=== PATIENT | female | born 1960 | race Caucasian/White ===

== ENCOUNTER 2017-12-19 01:12 | Emergency (ER) | payer MEDICAID ==
[~2017-12-19] VITALS: Ht 167.6 cm; Wt 96.1 kg
[~2017-12-19 01:12] MED LIST: HYDR-3965 PO; HYDR1TAB PO
[2017-12-19] MEDS ORDERED: ketorolac trometh. 30mg/ml inj. IV ONE (01:55)
[2017-12-19 02:17] LABS: BASOPHILS # (AUTO) 0.1 X10'3 (0-0.2); BASOPHILS % (AUTO) 0.7 % (0-1); EOSINOPHILS # (AUTO) 0.2 X10'3 (0-0.9); EOSINOPHILS % (AUTO) 2.6 % (0-6); HEMATOCRIT 38.3 % (35.0-45.0); HEMOGLOBIN 13.3 g/dl (12.0-16.0); LYMPHOCYTES # (AUTO) 3.5 X10'3 (1.1-4.8); LYMPHOCYTES % (AUTO) 42.7 % (21-51); MEAN CORPUSCULAR HEMOGLOBIN 31.9 PG (27.0-31.0); MEAN CORPUSCULAR HGB CONC 34.7 % (33.0-36.5); MEAN CORPUSCULAR VOLUME 91.7 FL (78-98); MEAN PLATELET VOLUME 8.6 FL (7.4-10.4); MONOCYTES # (AUTO) 0.6 X10'3 (0-0.9); MONOCYTES % (AUTO) 7.7 % (2-12); NEUTROPHILS # (AUTO) 3.8 X10'3 (1.8-7.7); NEUTROPHILS % (AUTO) 46.3 % (42-75); PLATELET COUNT 200 X10'3 (140-440); RED BLOOD COUNT 4.18 X10'6 (4.20-5.60); RED CELL DISTRIBUTION WIDTH 13.4 % (11.5-14.5); WHITE BLOOD COUNT 8.2 X10'3 (4.5-11.0)
[2017-12-19 02:33] LABS: ALANINE AMINOTRANSFERASE 44 U/L (12-78); ALBUMIN/GLOBULIN RATIO 1.3 (1.1-1.5); ALKALINE PHOSPHATASE 73 IU/L (46-116); ANION GAP 7 (8-16); ASPARTATE AMINO TRANSFERASE 33 U/L (10-37); BILIRUBIN,TOTAL 0.5 MG/DL (0.1-1.0); BLOOD UREA NITROGEN 15 MG/DL (7-18); CALCIUM 8.8 MG/DL (8.5-10.1); CHLORIDE 107 MMOL/L (99-107); GLUCOSE 94 MG/DL (70-104); POTASSIUM 3.4 MMOL/L (3.5-5.1); SODIUM 143 MMOL/L (135-145); TOTAL CARBON DIOXIDE 29.1 MMOL/L (24-32); TOTAL PROTEIN 7.2 G/DL (6.4-8.2); eGFR 58 ML/MIN
[2017-12-19 02:50] LABS: CLARITY,URINE SLIGHTLY CLOUDY (Clear); COLOR,URINE YELLOW (Yellow); GLUCOSE, URINE NEGATIVE (Neg); KETONES,URINE NEGATIVE (Neg); LEUKOCYTE ESTERASE ,URINE NEGATIVE (Neg); NITRITES, URINE NEGATIVE (Neg); OCCULT BLOOD,URINE NEGATIVE (Neg); PH,URINE 5.5 (4.8-8.0); PROTEIN,URINE NEGATIVE (Neg); UROBILINOGEN,URINE 0.2 E.U/dL (0.2-1.0)
[2017-12-19 03:06] LABS: UA COLLECTION TYPE CLN CATCH MIDSTREAM
[2017-12-19] MEDS ORDERED: TRAM50TA2 PO (03:20)
[2017-12-19 03:33] VITALS: BP 121/88
[2017-12-19 03:53] LABS: RBC,URINE NONE SEEN /HPF (0-2); WBC,URINE 0-4 /HPF (0-4)
[2017-12-19 03:54] LABS: AMORPHOUS URATES 3+; BACTERIA,URINE NONE SEEN /HPF (Neg); CAL OXALATE CRYSTALS 1+ /HPF (NEGATIVE); MUCUS STRANDS FEW /LPF (Neg); SQUAMOUS EPITHELIAL CELL,UR FEW /LPF (FEW)
== END 2017-12-19 03:36 | disposition home or self-care (01) ==
LOC: ER 01:12
DX: R10.31 Right lower quadrant pain (principal); G89.29 Other chronic pain; F17.200 Nicotine dependence, unspecified, uncomplicated; Z88.2 Allergy status to sulfonamides; Z88.5 Allergy status to narcotic agent; Z98.890 Other specified postprocedural states
CPT/HCPCS: 36415; 76856; 80053; 81001; 85025; 96374; 99285; J1885

== ENCOUNTER 2018-03-16 01:29 | Emergency (ER) | payer MEDICAID ==
[~2018-03-16] VITALS: Ht 167.6 cm; Wt 90.9 kg
[~2018-03-16 01:29] MED LIST changes: +AZI25OT PO; +ROBDML PO
[2018-03-16 04:57] VITALS: BP 123/60
[2018-03-16] MEDS ORDERED: MECL12.584 PO (05:00)
== END 2018-03-16 05:01 | disposition home or self-care (01) ==
LOC: ER 01:30
DX: F07.81 Postconcussional syndrome (principal); G89.29 Other chronic pain; Z98.890 Other specified postprocedural states; Z88.2 Allergy status to sulfonamides; Z88.5 Allergy status to narcotic agent; Z88.8 Allergy status to other drugs, medicaments and biological substances
CPT/HCPCS: 70450; 99284

== ENCOUNTER 2018-03-22 00:54 | Emergency (ER) | payer MEDICAID ==
[~2018-03-22] VITALS: Ht 167.6 cm; Wt 90.9 kg
[~2018-03-22 00:54] MED LIST changes: +MECL12.584 PO
[2018-03-22 04:43] VITALS: BP 143/88
== END 2018-03-22 04:44 | disposition home or self-care (01) ==
LOC: EEVIPCON 00:54 → ER 00:54
DX: R10.2 Pelvic and perineal pain (principal); R50.9 Fever, unspecified; L29.2 Pruritus vulvae; G89.29 Other chronic pain; F15.10 Other stimulant abuse, uncomplicated; F11.10 Opioid abuse, uncomplicated; Z98.890 Other specified postprocedural states; Z88.5 Allergy status to narcotic agent; Z88.2 Allergy status to sulfonamides; Z88.1 Allergy status to other antibiotic agents
CPT/HCPCS: 36415; 87210; 87491; 99284

== ENCOUNTER 2018-04-11 20:37 | Emergency (ER) | payer MEDICAID ==
[~2018-04-11] VITALS: Ht 165.1 cm; Wt 90.0 kg
[~2018-04-11 20:37] MED LIST changes: -AZI25OT PO
[2018-04-11 23:22] VITALS: BP 129/77
== END 2018-04-11 23:32 | disposition home or self-care (01) ==
LOC: ER 20:38
DX: M79.671 Pain in right foot (principal); F15.10 Other stimulant abuse, uncomplicated; Z88.6 Allergy status to analgesic agent; Z88.2 Allergy status to sulfonamides; Z88.8 Allergy status to other drugs, medicaments and biological substances
CPT/HCPCS: 29515; 73610; 99284

== ENCOUNTER 2018-06-28 16:27 | Emergency (ER) | payer MEDICAID ==
[~2018-06-28] VITALS: Ht 165.1 cm; Wt 90.9 kg
[~2018-06-28 16:27] MED LIST changes: +APIX5TAB3 PO; -HYDR-3965 PO; -HYDR1TAB PO; -MECL12.584 PO; -ROBDML PO
[2018-06-28 16:31] VITALS: BP 176/86
== END 2018-06-28 16:52 | disposition left against medical advice (07) ==
LOC: ER 16:28
DX: M79.604 Pain in right leg (principal); Z53.21 Procedure and treatment not carried out due to patient leaving prior to being seen by health care provider
CPT/HCPCS: 80053; 93005; 99281

== ENCOUNTER 2018-06-29 00:52 | Emergency (ER) | payer MEDICAID | END 2018-06-29 01:53 | disposition left against medical advice (07) | LOC: ER 00:53 | DX: R60.0 Localized edema (principal); Z53.21 Procedure and treatment not carried out due to patient leaving prior to being seen by health care provider ==

== ENCOUNTER 2018-07-09 23:23 | Emergency (ER) | payer MEDICAID ==
[~2018-07-09] VITALS: Ht 152.4 cm; Wt 90.9 kg
[2018-07-10] MEDS ORDERED: ACET325T55 PO (02:57)
[2018-07-10 03:21] VITALS: BP 127/78
== END 2018-07-10 03:23 | disposition home or self-care (01) ==
LOC: ER 23:24
DX: S09.8XXA Other specified injuries of head, initial encounter (principal); Z88.6 Allergy status to analgesic agent; Z88.2 Allergy status to sulfonamides; Z88.1 Allergy status to other antibiotic agents; Z88.5 Allergy status to narcotic agent; T74.21XA Adult sexual abuse, confirmed, initial encounter; Y93.89 Activity, other specified; Y99.8 Other external cause status; Y92.830 Public park as the place of occurrence of the external cause
CPT/HCPCS: 70486; 73610; 73620; 99284

== ENCOUNTER 2020-01-28 08:21 | Emergency (ER) | payer MEDICAID ==
[~2020-01-28] VITALS: Ht 165.1 cm; Wt 90.9 kg
[~2020-01-28 08:21] MED LIST changes: +ACET325T55 PO; +ONDA8TAB9 PO
[2020-01-28 08:35] VITALS: BP 153/88
[2020-01-28] MEDS ORDERED: ketorolac trometh. 30mg/ml inj. IM ONE (09:00)
[2020-01-28] MEDS ORDERED: PRED20TA PO (09:06)
[2020-01-28] MEDS ORDERED: CYCL-1 PO (09:06)
== END 2020-01-28 09:23 | disposition home or self-care (01) ==
LOC: ER 08:21
DX: M54.12 Radiculopathy, cervical region (principal); M25.512 Pain in left shoulder; G89.29 Other chronic pain; F41.9 Anxiety disorder, unspecified; F15.90 Other stimulant use, unspecified, uncomplicated; F11.90 Opioid use, unspecified, uncomplicated; Z98.890 Other specified postprocedural states; Z72.89 Other problems related to lifestyle; Z88.2 Allergy status to sulfonamides; Z88.5 Allergy status to narcotic agent; Z88.8 Allergy status to other drugs, medicaments and biological substances; Z79.899 Other long term (current) drug therapy; Z79.01 Long term (current) use of anticoagulants
CPT/HCPCS: 96372; 99283; J1885

== ENCOUNTER 2020-02-11 22:07 | Emergency (ER) | payer MEDICAID ==
[~2020-02-11] VITALS: Ht 165.1 cm; Wt 94.0 kg
[~2020-02-11 22:07] MED LIST changes: +CYCL-1 PO
[2020-02-11] MEDS ORDERED: PRED20TA PO (23:08)
[2020-02-11] MEDS ORDERED: ALBU6.7H9 INH (23:08)
[2020-02-11] MEDS ORDERED: AMOX-422 PO (23:08)
[2020-02-11 23:18] VITALS: BP 128/77
== END 2020-02-11 23:22 | disposition home or self-care (01) ==
LOC: ER 22:07
DX: J40 Bronchitis, not specified as acute or chronic (principal); G89.29 Other chronic pain; F41.9 Anxiety disorder, unspecified; F17.200 Nicotine dependence, unspecified, uncomplicated; F15.90 Other stimulant use, unspecified, uncomplicated; F14.90 Cocaine use, unspecified, uncomplicated; Z98.890 Other specified postprocedural states; Z59.0 Homelessness; Z88.2 Allergy status to sulfonamides; Z88.5 Allergy status to narcotic agent; Z88.8 Allergy status to other drugs, medicaments and biological substances; Z79.2 Long term (current) use of antibiotics; Z79.01 Long term (current) use of anticoagulants; Z79.899 Other long term (current) drug therapy
CPT/HCPCS: 71046; 99283

== ENCOUNTER 2020-03-13 11:46 | Emergency (ER) | payer MEDICAID ==
[~2020-03-13] VITALS: Ht 165.1 cm; Wt 93.2 kg
[~2020-03-13 11:46] MED LIST changes: +ALBU6.7H9 INH
[2020-03-13 13:46] LABS: BASOPHILS % (AUTO) 0.5 % (0-1); EOSINOPHILS # (AUTO) 0.2 X10'3 (0-0.9); EOSINOPHILS % (AUTO) 1.9 % (0-6); HEMATOCRIT 39.9 % (35.0-45.0); HEMOGLOBIN 13.3 g/dl (12.0-16.0); LYMPHOCYTES # (AUTO) 2.3 X10'3 (1.1-4.8); LYMPHOCYTES % (AUTO) 28.1 % (21-51); MEAN CORPUSCULAR HEMOGLOBIN 31.5 PG (27.0-31.0); MEAN CORPUSCULAR HGB CONC 33.4 g/dL (33.0-36.5); MEAN CORPUSCULAR VOLUME 94.1 FL (78-98); MEAN PLATELET VOLUME 8.7 FL (7.4-10.4); MONOCYTES # (AUTO) 0.8 X10'3 (0-0.9); MONOCYTES % (AUTO) 9.4 % (2-12); NEUTROPHILS # (AUTO) 4.9 X10'3 (1.8-7.7); NEUTROPHILS % (AUTO) 60.1 % (42-75); PLATELET COUNT 242 X10'3 (140-440); RED BLOOD COUNT 4.24 X10'6 (4.20-5.60); RED CELL DISTRIBUTION WIDTH 13.4 % (11.5-14.5); WHITE BLOOD COUNT 8.1 X10'3 (4.5-11.0)
[2020-03-13] MEDS ORDERED: normal saline 1000ML IV soln IVB ONE (13:55)
[2020-03-13 13:58] LABS: ALANINE AMINOTRANSFERASE 20 U/L (12-78); ALBUMIN 3.7 G/DL (3.4-5.0); ALBUMIN/GLOBULIN RATIO 1.2 (1.1-1.5); ALKALINE PHOSPHATASE 71 IU/L (46-116); ANION GAP 12 (8-16); ASPARTATE AMINO TRANSFERASE 14 U/L (10-37); BILIRUBIN,TOTAL 0.3 MG/DL (0.1-1.0); BLOOD UREA NITROGEN 19 MG/DL (7-18); BUN/CREATININE RATIO 18.6 (6.6-38.0); CALCIUM 8.9 MG/DL (8.5-10.1); CHLORIDE 106 MMOL/L (99-107); CREATININE 1.02 MG/DL (0.40-0.90); GLUCOSE 108 MG/DL (70-104); LIPASE 81 U/L (73-393); SODIUM 143 MMOL/L (135-145); TOTAL CARBON DIOXIDE 25.4 MMOL/L (24-32); TOTAL PROTEIN 6.8 G/DL (6.4-8.2); eGFR 56 ML/MIN
[2020-03-13 14:09] LABS: CLARITY,URINE SLIGHTLY CLOUDY (Clear); COLOR,URINE YELLOW (Yellow); GLUCOSE, URINE NEGATIVE (Neg); KETONES,URINE NEGATIVE (Neg); LEUKOCYTE ESTERASE ,URINE NEGATIVE (Neg); NITRITES, URINE NEGATIVE (Neg); OCCULT BLOOD,URINE NEGATIVE (Neg); PROTEIN,URINE 30 mg/dl (Neg); UROBILINOGEN,URINE 0.2 E.U/dL (0.2-1.0)
[2020-03-13 14:12] LABS: UA COLLECTION TYPE CLN CATCH MIDSTREAM
[2020-03-13 14:13] LABS: ETHANOL < 0.010 GM/DL (0.0-0.010)
[2020-03-13 14:14] LABS: BACTERIA,URINE NONE SEEN /HPF (Neg); MUCUS STRANDS MODERATE /LPF (Neg); RBC,URINE NONE SEEN /HPF (0-2); SQUAMOUS EPITHELIAL CELL,UR FEW /LPF (FEW); URIC ACID CRYSTALS 2+ /HPF (NEGATIVE); WBC,URINE 0-4 /HPF (0-4)
[2020-03-13 14:22] LABS: URINE AMPHETAMINE SCREEN POSITIVE (Neg); URINE BARBITUATE SCREEN NEGATIVE (Neg); URINE BENZODIAZEPINES SCREEN NEGATIVE (Neg); URINE CANNABINOID SCREEN POSITIVE (Neg); URINE COCAINE SCREEN NEGATIVE (Neg); URINE METHADONE SCREEN NEGATIVE (Neg); URINE OPIATE SCREEN NEGATIVE (Neg); URINE PHENCYCLIDINE SCREEN NEGATIVE (Neg)
[2020-03-13] MEDS ORDERED: POTA20TA19 PO (14:39)
[2020-03-13] MEDS ORDERED: ONDA4TAB12 PO (14:39)
[2020-03-13 15:08] VITALS: BP 123/64
== END 2020-03-13 15:07 | disposition home or self-care (01) ==
LOC: ER 11:46
DX: E87.6 Hypokalemia (principal); R11.2 Nausea with vomiting, unspecified; G89.29 Other chronic pain; F41.9 Anxiety disorder, unspecified; F17.210 Nicotine dependence, cigarettes, uncomplicated; F12.90 Cannabis use, unspecified, uncomplicated; F15.90 Other stimulant use, unspecified, uncomplicated; F11.90 Opioid use, unspecified, uncomplicated; Z59.0 Homelessness; Z72.89 Other problems related to lifestyle; Z98.890 Other specified postprocedural states; Z88.2 Allergy status to sulfonamides; Z88.5 Allergy status to narcotic agent; Z88.8 Allergy status to other drugs, medicaments and biological substances; Z79.01 Long term (current) use of anticoagulants; Z79.899 Other long term (current) drug therapy
CPT/HCPCS: 36415; 80053; 80305; 80320; 81001; 83690; 85025; 96360; 99283; J7030

== ENCOUNTER 2020-05-09 21:10 | Emergency (ER) | payer MEDICAID ==
[~2020-05-09] VITALS: Ht 165.1 cm; Wt 94.1 kg
[~2020-05-09 21:10] MED LIST changes: +ONDA4TAB12 PO
[2020-05-09 21:37] LABS: BASOPHILS % (AUTO) 0.6 % (0-1); EOSINOPHILS # (AUTO) 0.1 X10'3 (0-0.9); HEMATOCRIT 39.1 % (35.0-45.0); LYMPHOCYTES # (AUTO) 2.5 X10'3 (1.1-4.8); LYMPHOCYTES % (AUTO) 33.6 % (21-51); MEAN CORPUSCULAR HEMOGLOBIN 31.5 PG (27.0-31.0); MEAN CORPUSCULAR HGB CONC 33.2 g/dL (33.0-36.5); MEAN PLATELET VOLUME 8.3 FL (7.4-10.4); MONOCYTES # (AUTO) 0.6 X10'3 (0-0.9); MONOCYTES % (AUTO) 7.5 % (2-12); NEUTROPHILS # (AUTO) 4.3 X10'3 (1.8-7.7); NEUTROPHILS % (AUTO) 57.3 % (42-75); PLATELET COUNT 236 X10'3 (140-440); RED BLOOD COUNT 4.12 X10'6 (4.20-5.60); RED CELL DISTRIBUTION WIDTH 13.3 % (11.5-14.5); WHITE BLOOD COUNT 7.5 X10'3 (4.5-11.0)
[2020-05-09 21:54] LABS: ALANINE AMINOTRANSFERASE 21 U/L (12-78); ALBUMIN 3.8 G/DL (3.4-5.0); ALBUMIN/GLOBULIN RATIO 1.3 (1.1-1.5); ALKALINE PHOSPHATASE 72 IU/L (46-116); ANION GAP 11 (8-16); ASPARTATE AMINO TRANSFERASE 17 U/L (10-37); BILIRUBIN,TOTAL 0.3 MG/DL (0.1-1.0); BLOOD UREA NITROGEN 16 MG/DL (7-18); BUN/CREATININE RATIO 13.3 (6.6-38.0); CALCIUM 8.9 MG/DL (8.5-10.1); CHLORIDE 108 MMOL/L (99-107); GLUCOSE 95 MG/DL (70-104); SODIUM 144 MMOL/L (135-145); TOTAL CARBON DIOXIDE 25.4 MMOL/L (24-32); TOTAL PROTEIN 6.8 G/DL (6.4-8.2); eGFR 46 ML/MIN
[2020-05-09 22:22] VITALS: BP 116/63
== END 2020-05-09 22:23 | disposition home or self-care (01) ==
LOC: ER 21:11
DX: R07.89 Other chest pain (principal); R10.33 Periumbilical pain; G89.29 Other chronic pain; F41.9 Anxiety disorder, unspecified; F12.90 Cannabis use, unspecified, uncomplicated; F15.90 Other stimulant use, unspecified, uncomplicated; F11.90 Opioid use, unspecified, uncomplicated; Z98.890 Other specified postprocedural states; Z59.0 Homelessness; Z88.2 Allergy status to sulfonamides; Z88.5 Allergy status to narcotic agent; Z88.8 Allergy status to other drugs, medicaments and biological substances; Z79.01 Long term (current) use of anticoagulants; Z79.899 Other long term (current) drug therapy
CPT/HCPCS: 36415; 71045; 80053; 84484; 85025; 93005; 99285

== ENCOUNTER 2023-01-04 02:04 | Emergency (ER) | payer MEDICAID ==
[~2023-01-04] VITALS: Ht 165.1 cm; Wt 100.0 kg
[~2023-01-04 02:04] MED LIST changes: +ALBU6.7H14 INH; -ALBU6.7H9 INH; +IBUP-1984 PO
[2023-01-04 02:08] VITALS: BP 134/65
[2023-01-04] MEDS ORDERED: ALBU18HF2 INH (03:23)
[2023-01-04] MEDS ORDERED: PRED20TA PO (03:23)
== END 2023-01-04 03:39 | disposition home or self-care (01) ==
LOC: ER 02:06
DX: J20.9 Acute bronchitis, unspecified (principal); Z20.822 Contact with and (suspected) exposure to COVID-19; R07.89 Other chest pain; E86.0 Dehydration; G89.29 Other chronic pain; F41.9 Anxiety disorder, unspecified; F12.90 Cannabis use, unspecified, uncomplicated; F17.210 Nicotine dependence, cigarettes, uncomplicated; F15.90 Other stimulant use, unspecified, uncomplicated; F11.90 Opioid use, unspecified, uncomplicated; Z59.00 Homelessness unspecified; Z88.2 Allergy status to sulfonamides; Z88.8 Allergy status to other drugs, medicaments and biological substances; Z88.1 Allergy status to other antibiotic agents; Z79.899 Other long term (current) drug therapy
CPT/HCPCS: 71045; 87811; 93005; 99285

== ENCOUNTER 2023-04-02 19:09 | Emergency (ER) | payer MEDICAID ==
[~2023-04-02] VITALS: Ht 165.1 cm; Wt 103.2 kg
[~2023-04-02 19:09] MED LIST changes: +ALBU18HF2 INH
[2023-04-02 19:18] VITALS: BP 144/88
[2023-04-02 19:43] LABS: CLARITY,URINE SLIGHTLY CLOUDY (Clear); COLOR,URINE YELLOW (Yellow); GLUCOSE, URINE NEGATIVE (Neg); KETONES,URINE NEGATIVE (Neg); LEUKOCYTE ESTERASE ,URINE NEGATIVE (Neg); NITRITES, URINE NEGATIVE (Neg); OCCULT BLOOD,URINE NEGATIVE (Neg); PROTEIN,URINE NEGATIVE (Neg); UROBILINOGEN,URINE 0.2 E.U/dL (0.2-1.0)
[2023-04-02 19:48] LABS: UA COLLECTION TYPE CLN CATCH MIDSTREAM
[2023-04-02 19:53] LABS: SQUAMOUS EPITHELIAL CELL,UR FEW /LPF (FEW)
[2023-04-02 19:55] LABS: FINE GRANULAR CAST 0-3 /LPF (NEGATIVE)
[2023-04-02 19:56] LABS: RBC,URINE 0-2 /HPF (0-2); WBC,URINE 0-4 /HPF (0-4)
[2023-04-02 19:57] LABS: BACTERIA,URINE FEW /HPF (Neg)
[2023-04-02] MEDS ORDERED: DIF150T PO (20:20)
[2023-04-02] MEDS ORDERED: fluconazole 150mg tablet PO ONE (20:25)
== END 2023-04-02 20:34 | disposition home or self-care (01) ==
LOC: ER 19:10
DX: B37.2 Candidiasis of skin and nail (principal); H92.02 Otalgia, left ear; F12.10 Cannabis abuse, uncomplicated; F15.10 Other stimulant abuse, uncomplicated; G89.29 Other chronic pain; M54.9 Dorsalgia, unspecified; F41.9 Anxiety disorder, unspecified; Z87.81 Personal history of (healed) traumatic fracture; Z59.00 Homelessness unspecified; Z88.2 Allergy status to sulfonamides; Z88.5 Allergy status to narcotic agent; Z79.899 Other long term (current) drug therapy; Z88.8 Allergy status to other drugs, medicaments and biological substances
CPT/HCPCS: 81001; 99283

== ENCOUNTER 2023-04-03 00:36 | Emergency (ER) | payer MEDICAID ==
[~2023-04-03] VITALS: Ht 165.1 cm; Wt 100.0 kg
[~2023-04-03 00:36] MED LIST changes: +DIF150T PO
[2023-04-03 00:55] VITALS: BP 137/71
== END 2023-04-03 01:11 | disposition left against medical advice (07) ==
LOC: ER 00:37
DX: R23.8 Other skin changes (principal); Z53.21 Procedure and treatment not carried out due to patient leaving prior to being seen by health care provider
CPT/HCPCS: 99281

== ENCOUNTER 2023-05-25 10:27 | Emergency (ER) | payer MEDICAID ==
[~2023-05-25] VITALS: Ht 165.1 cm; Wt 104.5 kg
[~2023-05-25 10:27] MED LIST changes: -DIF150T PO
[2023-05-25 10:38] VITALS: BP 145/89
[2023-05-25] MEDS ORDERED: acetaminophen 325mg tablet PO ONE (11:15)
[2023-05-25] MEDS ORDERED: metoclopramide 10mg tablet PO ONE (11:15)
[2023-05-25] MEDS ORDERED: orphenadrine citrate 60mg/2ml inj. IM ONE (11:15)
[2023-05-25] MEDS ORDERED: ketorolac trometh inj. 60 MG/2 ML VIAL IM ONE (11:15)
[2023-05-25] MEDS ORDERED: HYDROcodone/acetaminophen 10/325mg tab PO ONE (11:15)
[2023-05-25] MEDS ORDERED: cyclobenzaprine 10mg tablet PO ONE (11:35)
[2023-05-25 11:59] LABS: CLARITY,URINE CLEAR (Clear); COLOR,URINE YELLOW (Yellow); GLUCOSE, URINE NEGATIVE (Neg); KETONES,URINE NEGATIVE (Neg); LEUKOCYTE ESTERASE ,URINE NEGATIVE (Neg); NITRITES, URINE NEGATIVE (Neg); OCCULT BLOOD,URINE NEGATIVE (Neg); PH,URINE 5.5 (4.8-8.0); PROTEIN,URINE NEGATIVE (Neg); UROBILINOGEN,URINE 0.2 E.U/dL (0.2-1.0)
[2023-05-25 12:01] LABS: UA COLLECTION TYPE CLN CATCH MIDSTREAM
[2023-05-25] MEDS ORDERED: HYDR-3973 PO (12:29)
[2023-05-25] MEDS ORDERED: LIDO700A32 TOP (12:29)
[2023-05-25] MEDS ORDERED: CYCL-1 PO (12:29)
[2023-05-25 12:39] LABS: URINE AMPHETAMINE SCREEN NEGATIVE (Neg); URINE BARBITUATE SCREEN NEGATIVE (Neg); URINE BENZODIAZEPINES SCREEN NEGATIVE (Neg); URINE CANNABINOID SCREEN POSITIVE (Neg); URINE COCAINE SCREEN NEGATIVE (Neg); URINE METHADONE SCREEN NEGATIVE (Neg); URINE OPIATE SCREEN NEGATIVE (Neg); URINE PHENCYCLIDINE SCREEN NEGATIVE (Neg)
== END 2023-05-25 13:12 | disposition home or self-care (01) ==
LOC: ER 10:28
DX: M54.50 Low back pain, unspecified (principal); G89.29 Other chronic pain; F41.9 Anxiety disorder, unspecified; F12.90 Cannabis use, unspecified, uncomplicated; F15.90 Other stimulant use, unspecified, uncomplicated; F11.90 Opioid use, unspecified, uncomplicated; Z98.890 Other specified postprocedural states; Z59.00 Homelessness unspecified; Z72.89 Other problems related to lifestyle; Z88.2 Allergy status to sulfonamides; Z88.5 Allergy status to narcotic agent; Z88.8 Allergy status to other drugs, medicaments and biological substances; Z79.899 Other long term (current) drug therapy
CPT/HCPCS: 74176; 80305; 81003; 96372; 99285; J1885

== ENCOUNTER 2023-06-14 14:33 | Outpatient (CLI) | payer MEDICAID ==
[~2023-06-14 14:33] MED LIST changes: +HYDR-3973 PO; +LIDO700A32 TOP
== END 2023-06-14 23:59 | disposition home or self-care (01) ==
LOC: RAD 14:33
PROVIDERS: ATTEND Nurse Practitioner Family
DX: M47.817 Spondylosis without myelopathy or radiculopathy, lumbosacral region (principal); M47.815 Spondylosis without myelopathy or radiculopathy, thoracolumbar region; M48.07 Spinal stenosis, lumbosacral region; M25.78 Osteophyte, vertebrae; M54.50 Low back pain, unspecified
CPT/HCPCS: 72110

== ENCOUNTER 2023-06-21 14:23 | Emergency (ER) | payer MEDICAID ==
[~2023-06-21] VITALS: Ht 165.1 cm; Wt 100.4 kg
[2023-06-21 14:41] VITALS: BP 146/75; PULSE 80; RESP 18; TEMP 99.2; O2SAT 98
--- NOTE | 2023-06-21 15:24 | NUR ---
AT BEDSIDE WITH YAKELIN FOR PELVIC EXAM.
[2023-06-21] MEDS ORDERED: MICO45CR46 VG (15:30)
[2023-06-21] MEDS ORDERED: ONDA4TAB12 PO (15:30)
[2023-06-21] MEDS ORDERED: ondansetron 4mg rapidly disintigrating tab PO ONE (15:30)
--- NOTE | 2023-06-21 16:14 | NUR ---
PO CHALLENGE TOLERATED.
== END 2023-06-21 16:15 | disposition home or self-care (01) ==
LOC: ER 14:24
DX: A08.4 Viral intestinal infection, unspecified (principal); L29.2 Pruritus vulvae; F41.9 Anxiety disorder, unspecified; F12.10 Cannabis abuse, uncomplicated; F15.10 Other stimulant abuse, uncomplicated; G89.29 Other chronic pain; M54.9 Dorsalgia, unspecified; Z87.81 Personal history of (healed) traumatic fracture; Z59.00 Homelessness unspecified; Z56.0 Unemployment, unspecified; Z88.2 Allergy status to sulfonamides; Z79.899 Other long term (current) drug therapy; Z88.5 Allergy status to narcotic agent; Z88.8 Allergy status to other drugs, medicaments and biological substances; Z79.1 Long term (current) use of non-steroidal anti-inflammatories (NSAID)
CPT/HCPCS: 99283; 99284

== ENCOUNTER 2023-06-25 00:12 | Emergency (ER) | payer MEDICAID ==
[~2023-06-25] VITALS: Ht 165.1 cm; Wt 99.1 kg
[~2023-06-25 00:12] MED LIST changes: +MICO45CR46 VG
[2023-06-25 00:36] VITALS: BP 112/66; PULSE 63; RESP 20; TEMP 98.7; O2SAT 97
== END 2023-06-25 05:17 | disposition left against medical advice (07) ==
LOC: ER 00:13
DX: R06.02 Shortness of breath (principal); Z53.21 Procedure and treatment not carried out due to patient leaving prior to being seen by health care provider
CPT/HCPCS: 93005; 99281

== ENCOUNTER 2023-06-26 22:53 | Emergency (ER) | payer MEDICAID | END 2023-06-26 23:50 | disposition left against medical advice (07) | LOC: ER 22:54 | DX: R10.9 Unspecified abdominal pain (principal); Z53.21 Procedure and treatment not carried out due to patient leaving prior to being seen by health care provider ==

== ENCOUNTER 2023-08-24 09:18 | Emergency (ER) | payer MEDICAID ==
[~2023-08-24] VITALS: Ht 165.1 cm; Wt 100.9 kg
[~2023-08-24 09:18] MED LIST changes: -HYDR-3973 PO; -MICO45CR46 VG
[2023-08-24 09:46] VITALS: BP_SYST 166; PULSE 70; RESP 18; TEMP 98.7; O2SAT 98
== END 2023-08-24 15:07 | disposition left against medical advice (07) ==
LOC: EEVIPCON 09:19 → ER 09:19
DX: T76.21XA Adult sexual abuse, suspected, initial encounter (principal); N89.8 Other specified noninflammatory disorders of vagina; G89.29 Other chronic pain; M54.9 Dorsalgia, unspecified; F31.9 Bipolar disorder, unspecified; F12.10 Cannabis abuse, uncomplicated; F15.10 Other stimulant abuse, uncomplicated; Z87.81 Personal history of (healed) traumatic fracture; Z88.5 Allergy status to narcotic agent
CPT/HCPCS: 99283

== ENCOUNTER 2024-07-24 19:20 | Emergency (ER) | payer MEDICAID ==
[~2024-07-24] VITALS: Ht 162.6 cm; Wt 100.0 kg
[~2024-07-24 19:20] MED LIST changes: +ONDA-243 PO; -ONDA4TAB12 PO
[2024-07-24 19:38] VITALS: BP 154/67; PULSE 77; RESP 18; TEMP 97.7; O2SAT 98
[2024-07-24] MEDS ORDERED: MECL-226 PO (22:20)
[2024-07-24] MEDS ORDERED: MICO45CR73 VG (22:21)
[2024-07-24] MEDS: meclizine 12.5mg tablet PO ONE (22:31)
== END 2024-07-24 22:44 | disposition home or self-care (01) ==
LOC: ER 19:20
DX: R42 Dizziness and giddiness (principal); B37.9 Candidiasis, unspecified
CPT/HCPCS: 99282; J8597

== ENCOUNTER 2024-07-28 18:55 | Emergency (ER) | payer MEDICAID ==
[~2024-07-28] VITALS: Ht 162.6 cm; Wt 105.5 kg
[~2024-07-28 18:55] MED LIST changes: +MECL-226 PO; +MICO45CR73 VG
[2024-07-28 19:10] VITALS: TEMP 98.5
[2024-07-28 19:39] LABS: BASOPHILS # (AUTO) 0.1 X10'3 (0-0.2); EOSINOPHILS # (AUTO) 0.2 X10'3 (0-0.9); EOSINOPHILS % (AUTO) 1.9 % (0-6); HEMATOCRIT 39.4 % (35.0-45.0); LYMPHOCYTES # (AUTO) 3.2 X10'3 (1.1-4.8); LYMPHOCYTES % (AUTO) 40.1 % (21-51); MEAN CORPUSCULAR HEMOGLOBIN 31.6 PG (27.0-31.0); MEAN CORPUSCULAR HGB CONC 33.1 g/dL (33.0-36.5); MEAN CORPUSCULAR VOLUME 95.5 FL (78-98); MEAN PLATELET VOLUME 9.4 FL (7.4-10.4); MONOCYTES # (AUTO) 0.6 X10'3 (0-0.9); MONOCYTES % (AUTO) 7.8 % (2-12); NEUTROPHILS % (AUTO) 49.2 % (42-75); PLATELET COUNT 222 X10'3 (140-440); RED BLOOD COUNT 4.13 X10'6 (4.20-5.60); RED CELL DISTRIBUTION WIDTH 13.1 % (11.5-14.5)
[2024-07-28 19:46] LABS: BILIRUBIN,URINE NEGATIVE (Neg); CLARITY,URINE CLEAR (Clear); COLOR,URINE YELLOW (Yellow); GLUCOSE, URINE NEGATIVE (Neg); KETONES,URINE NEGATIVE (Neg); LEUKOCYTE ESTERASE ,URINE NEGATIVE (Neg); NITRITES, URINE NEGATIVE (Neg); OCCULT BLOOD,URINE NEGATIVE (Neg); PROTEIN,URINE NEGATIVE (Neg); UROBILINOGEN,URINE 0.2 E.U/dL (0.2-1.0)
[2024-07-28 19:47] LABS: UA COLLECTION TYPE CLN CATCH MIDSTREAM
[2024-07-28 19:49] LABS: ALANINE AMINOTRANSFERASE 23 U/L (12-78); ALBUMIN 3.7 G/DL (3.4-5.0); ALBUMIN/GLOBULIN RATIO 1.2 (1.1-1.5); ALKALINE PHOSPHATASE 69 IU/L (46-116); ANION GAP 8 (8-16); ASPARTATE AMINO TRANSFERASE 21 U/L (10-37); BILIRUBIN,TOTAL 0.2 MG/DL (0.1-1.0); BLOOD UREA NITROGEN 14 MG/DL (7-18); BUN/CREATININE RATIO 16.5 (10.0-20.0); CALCIUM 9.1 MG/DL (8.5-10.1); CHLORIDE 108 MMOL/L (99-107); CREATININE 0.85 MG/DL (0.40-0.90); GLUCOSE 101 MG/DL (70-104); POTASSIUM 3.7 MMOL/L (3.5-5.1); SODIUM 144 MMOL/L (135-145); TOTAL CARBON DIOXIDE 28.5 MMOL/L (24-32); TOTAL PROTEIN 6.9 G/DL (6.4-8.2); eCRCL 60 ML/MIN; eGFR 68 ML/MIN
[2024-07-28 19:56] LABS: PRO BRAIN NATRIURETIC PEPTIDE 240 PG/ML (0-125)
[2024-07-28 22:30] VITALS: BP 128/72; PULSE 80; O2SAT 96
[2024-07-28] MEDS ORDERED: APIX5TAB5 PO (23:04)
[2024-07-28 23:31] VITALS: RESP 16
[2024-07-28] MEDS: HYDROcodone/acetaminophen 5mg/325mg tablet PO ONE (23:31)
== END 2024-07-28 23:50 | disposition home or self-care (01) ==
LOC: ER 18:55
DX: I82.461 Acute embolism and thrombosis of right calf muscular vein (principal); F41.9 Anxiety disorder, unspecified; F12.90 Cannabis use, unspecified, uncomplicated; F15.90 Other stimulant use, unspecified, uncomplicated; Z88.2 Allergy status to sulfonamides; Z88.5 Allergy status to narcotic agent; Z79.1 Long term (current) use of non-steroidal anti-inflammatories (NSAID); Z79.899 Other long term (current) drug therapy
CPT/HCPCS: 36415; 80053; 81003; 83880; 85025; 93970; 96372; 99285; J1650

== ENCOUNTER 2025-01-15 12:12 | Emergency (ER) | payer MEDICAID ==
[~2025-01-15] VITALS: Ht 165.1 cm; Wt 102.9 kg
[~2025-01-15 12:12] MED LIST changes: +APIX5TAB5 PO
[2025-01-15 12:31] VITALS: BP 105/56; PULSE 68; RESP 16; O2SAT 98
[2025-01-15 15:49] VITALS: TEMP 98
== END 2025-01-15 15:52 | disposition left against medical advice (07) ==
LOC: ER 12:13
DX: M79.604 Pain in right leg (principal); Z88.2 Allergy status to sulfonamides; Z88.5 Allergy status to narcotic agent; Z88.8 Allergy status to other drugs, medicaments and biological substances; Z53.21 Procedure and treatment not carried out due to patient leaving prior to being seen by health care provider